=== PATIENT | male | born 2000 | race Caucasian/White ===

== ENCOUNTER 2024-10-01 00:09 | Emergency (ER) | payer OTHER, SELFPAY ==
[2024-10-01 00:24] VITALS: BP 139/87; PULSE 89; RESP 16; TEMP 36.5; O2SAT 100; BMI 20.3
--- NOTE | 2024-10-01 00:27 | PC.NURSE ---
Per Dr. Dean- no need to place hard cervical collar at this time.
--- NOTE | 2024-10-01 00:29 | DI.CT.S_ITS ---
PROCEDURE: CT CERVICAL SPINE WO CON INDICATIONS: injury, trauma TECHNIQUE: Noncontrast 3 mm thick sections acquired from the skull base to the T4 level. Sagittal and coronal reformats were then constructed. For radiation dose reduction, the following was used: automated exposure control, adjustment of mA and/or kV according to patient size. COMPARISON: None. FINDINGS: Image quality: Excellent. Bones: No fractures or dislocations. Visualized superior ribs are intact. Soft tissues: Prevertebral soft tissues are normal in thickness. No paravertebral hematomas. No apical pneumothoraces. IMPRESSION: No displaced fracture or traumatic subluxation. Dictated by: Bong Kraft M.D. on 09/30/2024 at 23:49 Approved by: Bong Kraft M.D. on 09/30/2024 at 23:50
[2024-10-01] MEDS: KETOROLAC 30 MG/ML VIAL IM (00:31)
[2024-10-01 00:59] VITALS: PULSE 66; O2SAT 98
[2024-10-01 01:00] VITALS: BP 116/67; PULSE 68; O2SAT 97
--- NOTE | 2024-10-01 01:08 | ED.NECK ---
HPI - Neck Pain/Injury General Chief Complaint: Neck Pain/Injury Stated Complaint: Stiff neck, fell at trampoline park Time Seen by Provider: 10/01/24 01:04 Mode of arrival: Ambulatory History of Present Illness HPI Narrative: 24-year-old male was jumping in a trampoline park noon yesterday when he landed fairly flat and felt posterior neck pain, continued to jump around on the trampoline, few hours later felt increasing neck stiffness and discomfort. Has not taken any medications. No numbness or weakness face arm or leg. No incontinence of urine or stool. No other injuries. No loss of consciousness. No headache. Related Data Previous Rx's Medication Instructions Recorded methocarbamol 500 mg tablet 500 mg PO TID 7 days #21 tabs 10/01/24 Allergies Allergy/AdvReac Type Severity Reaction Status Date / Time amoxicillin Allergy Unknown Verified 10/01/24 01:24 Patient History Social History Smoking Status: Never smoker Smoking Status: Never smoker Exam Narrative Exam Narrative: GENERAL: Well-developed patient, in mild distress. HEAD: Atraumatic. Normocephalic. EYES: Pupils equal round and reactive. Extraocular motions intact. No scleral icterus. No injection or drainage. ENT: Nose without bleeding, purulent drainage. Throat without erythema, tonsillar hypertrophy or exudate. Airway patent. NECK: Trachea midline. No anterior neck lesions. Non tender posterior midline. Some tenderness along the right upper rhomboid musculature and trapezius musculature. CARDIOVASCULAR: Regular rate and rhythm without murmurs, gallops, or rubs. RESPIRATORY: Clear to auscultation. Breath sounds equal bilaterally. No wheezes, rales, or rhonchi. GASTROINTESTINAL: Abdomen soft, non-tender, nondistended. EXTREMITIES: No edema or joint tenderness. BACK: Nontender without deformity or crepitance. No flank tenderness. NEURO: AOx3. Motor functions grossly nonfocal SKIN: No rash or erythema of visible areas Initial Vital Signs Initial Vital Signs: Vital Signs Temperature 97.7 F 10/01/24 00:24 Pulse Rate 89 10/01/24 00:24 Respiratory Rate 16 10/01/24 00:24 Blood Pressure 139/87 10/01/24 00:24 Pulse Oximetry 100 10/01/24 00:24 Oxygen Delivery Method Room Air 10/01/24 00:24 Course Orders Ordered: ED Orders 10/01/24 00:29 CT cervical spine wo con Stat Discontinued Medications Ketorolac Tromethamine (Ketorolac 30 Mg/Ml Vial) 30 mg IM NOW ONE Stop: 10/01/24 00:29 Last Admin: 10/01/24 00:31 Dose: 30 mg Documented By: DORIE Methocarbamol (Methocarbamol 500 Mg Tablet) 500 mg PO NOW ONE Stop: 10/01/24 01:30 Last Admin: 10/01/24 01:37 Dose: 500 mg Documented By: RLC Vital Signs Vital signs: Vital Signs - 8 hr 10/01/24 00:24 10/01/24 00:59 10/01/24 01:00 Temperature 97.7 F Pulse Rate 89 66 68 Respiratory Rate 16 Blood Pressure 139/87 Pulse Oximetry 100 98 97 Oxygen Delivery Method Room Air 10/01/24 01:00 Temperature Pulse Rate Respiratory Rate Blood Pressure 116/67 Pulse Oximetry Oxygen Delivery Method MDM - Neck Pain/Injury Imaging Data CT - cervical spine: Radiologist's Impression: [place] [address] CT Scan Report Signed Patient: Chin Olivares MR#: [id number] : 2000 Acct:[id number] Age/Sex: 24 / M Date of Service: 10/01/24 Loc: ED Accession Number: [id number] Procedure: CT cervical spine wo con Ordering Provider: Paul Dean MD PROCEDURE: CT CERVICAL SPINE WO CON INDICATIONS: injury, trauma TECHNIQUE: Noncontrast 3 mm thick sections acquired from the skull base to the T4 level. Sagittal and coronal reformats were then constructed. For radiation dose reduction, the following was used: automated exposure control, adjustment of mA and/or kV according to patient size. COMPARISON: None. FINDINGS: Image quality: Excellent. Bones: No fractures or dislocations. Visualized superior ribs are intact. Soft tissues: Prevertebral soft tissues are normal in thickness. No paravertebral hematomas. No apical pneumothoraces. IMPRESSION: No displaced fracture or traumatic subluxation. Dictated by: Bong Kraft M.D. on 09/30/2024 at 23:49 Approved by: Bong Kraft M.D. on 09/30/2024 at 23:50 [facility] [place] Narrative Medical decision making narrative: 24-year-old male with posterior neck pain after trampoline noon today, after initial discomfort kept trampoline jumping, no other injuries. Increasing neck pain to the day. Neurovascularly intact. No treatment tried. IM Toradol ordered after triage. CT cervical spine ordered from triage. CT cervical spine through T4 level without obvious injuries, see radiology report. Has ride home with friend who was concerned, we will give oral dose Robaxin, prescription sent to pharmacy. Encouraged to take Tylenol and or Motrin as needed for pain control. Recheck with PCP in the next 2 days if not improved. Return precautions discussed. Discharge Plan Departure Patient Disposition: Home Clinical Impression: Neck pain, Strain of right rhomboid muscle Activity Restrictions/Additional Instructions: Trampoline jumping injury noon yesterday, initial posterior neck pain, however you continued to participate in further jumping activities. Subsequently had increasing posterior neck pain. No treatments tried prior to arrival. Intramuscular Toradol injection given. CT imaging of the cervical spine showed no injury patterns. Some tenderness to the superior right rhomboid musculature, likely spasm. Trial of muscle relaxant. Dose of oral Robaxin/methocarbamol given in the emergency department, with prescription sent to your pharmacy for further doses to use if needed. Take Tylenol and or Motrin as needed for pain control additionally. Warm pads can help with muscle spasm. Cool pads can help with anti-inflammatory effect. Recheck symptoms if not improving in the next couple of days with your regular doctor. Return to this/nearest emergency department for any change worsening symptoms or any concerns prior. Prescriptions: New methocarbamol 500 mg tablet 500 mg PO TID 7 Days Qty: 21 0RF Stand Alone Forms: Patient Portal/API/Survey
[2024-10-01] MEDS: methocarbamoL 500 MG TABLET PO (01:37)
== END 2024-10-01 01:43 | disposition home or self-care (01) ==
PROVIDERS: Emergency Provider Emergency Medicine
DX: S29.012A Strain of muscle and tendon of back wall of thorax, initial encounter (principal); M54.2 Cervicalgia; Y93.39 Activity, other involving climbing, rappelling and jumping off
CPT/HCPCS: 72125; 96372; 99283; 99284; J1885